=== PATIENT | female | born 1945 | race Caucasian/White ===

== ENCOUNTER → 2020-08-12 08:00 | Outpatient (CLI) | payer OTHER ==
[~2020-08-12] VITALS: Ht 152.4 cm; Wt 76.2 kg
[~2020-08-12 08:00] MED LIST: ATACAND16 MG PO; ATORVASTATIN CA40 MG PO; CANDESARTAN PO; CARV PO; FORTAMET500 MG PO; HUMALOG JU100 UNIT/1; INTEGRA PLUS C1 EACH PO; LANTUS; OXYC1TAB9 PO; XARELTO10 MG PO
== END | disposition home or self-care (01) ==
LOC: LAB 08:00 → EDSTATUS 08-19 08:00 → SURH 08-19 08:00
PROVIDERS: ATTEND Orthopaedic Surgery Sports Medicine
DX: M17.12 Unilateral primary osteoarthritis, left knee (principal); Z20.822 Contact with and (suspected) exposure to COVID-19; Z01.810 Encounter for preprocedural cardiovascular examination; Z01.812 Encounter for preprocedural laboratory examination; Z01.811 Encounter for preprocedural respiratory examination

== ENCOUNTER 2020-11-06 07:30 | Inpatient (IN) | payer OTHER ==
[~2020-11-06] VITALS: Ht 165.1 cm; Wt 76.2 kg
[2020-11-11] MEDS ORDERED: ALENDRONATE SOD70 MG (07:49)
[2020-11-11] MEDS ORDERED: OMEPRAZOLE20 MG (07:49)
[2020-11-11] MEDS ORDERED: SEMGLEE100 UNIT/1 (07:50)
[2020-11-11] MEDS ORDERED: CANDESARTAN CIL32 MG (07:50)
[2020-11-11] MEDS ORDERED: CANDESARTAN CIL16 MG (07:50)
[2020-11-11] MEDS ORDERED: CARVEDILOL12.5 M1 (07:50)
[2020-11-11] MEDS ORDERED: OFLOXACIN5 ML (07:51)
[2020-11-13] MEDS ORDERED: BACTRIM DS TAB1 EACH PO (06:34)
[2020-11-13] MEDS ORDERED: XARELTO10 MG PO (06:34)
[2020-11-13] MEDS ORDERED: INTEGRA PLUS C1 EACH PO (06:34)
[2020-11-13] MEDS ORDERED: OXYC1TAB9 PO (06:34)
== END 2020-11-13 15:38 | DRG 470 ==
LOC: O/R 11-11 05:45 → SURH 11-11 05:45
PROVIDERS: ADMIT Orthopaedic Surgery Sports Medicine; ATTEND Orthopaedic Surgery Sports Medicine
PROC: 3E0F7SF Introduction of Other Gas into Respiratory Tract, Via Natural or Artificial Opening (ICD-10-PCS; 2020-11-11)
PROC: 0SRD0J9 Replacement of Left Knee Joint with Synthetic Substitute, Cemented, Open Approach (ICD-10-PCS; principal; 2020-11-11 07:00)
DX: M17.12 Unilateral primary osteoarthritis, left knee (principal); Z20.822 Contact with and (suspected) exposure to COVID-19; I10 Essential (primary) hypertension; E11.9 Type 2 diabetes mellitus without complications